=== PATIENT | male | born 1950 | race Caucasian/White ===

== ENCOUNTER 2020-12-18 09:08 | Outpatient (CLI) | payer MEDICARE, OTHER ==
[2020-12-18 09:48] LABS: ALT ALANINE AMINOTRANSFERASE 43 IU/L (10-60); AST ASPARTATE AMINOTRANSFERASE 41 IU/L (10-42); GLUCOSE 107 mg/dL (70-100)
[2020-12-18 10:44] LABS: ESTIMATED AVERAGE GLUCOSE 123 mg/dL (70-100); HEMOGLOBIN A1c% 5.9 % (4.27-6.07)
== END 2020-12-18 09:09 | disposition home or self-care (01) ==
LOC: LAB 09:08
PROVIDERS: ATTEND Nurse Practitioner
DX: E78.1 Pure hyperglyceridemia (principal); R73.01 Impaired fasting glucose; K76.0 Fatty (change of) liver, not elsewhere classified
CPT/HCPCS: 36415; 80061; 81599; 82947; 83036; 83704; 84450; 84460

== ENCOUNTER 2021-07-02 09:09 | Outpatient (CLI) | payer MEDICARE, OTHER ==
[2021-07-02 09:57] LABS: ALT ALANINE AMINOTRANSFERASE 43 IU/L (10-60); AST ASPARTATE AMINOTRANSFERASE 44 IU/L (10-42); CHOL/HDL RATIO 5.1 (<5.0); CHOLESTEROL 179 mg/dL; HDL CHOLESTEROL 35 mg/dL; LDL CHOLESTEROL,CALCULATED 80 mg/dL; LDL/HDL RATIO 2.3 (<3.6); TRIGLYCERIDES 320 mg/dL; VLDL CHOLESTEROL 64 mg/dL
[2021-07-02 10:08] LABS: THYROID STIMULATING HORMONE 7.56 uIU/mL (0.34-5.60)
[2021-07-02 10:58] LABS: FREE T4 (FREE THYROXINE) 0.94 ng/dL (0.58-1.64)
[2021-07-02 11:50] LABS: ESTIMATED AVERAGE GLUCOSE 123 mg/dL (70-100); HEMOGLOBIN A1c% 5.9 % (4.27-6.07)
[2021-07-03 13:30] LABS: GLUCOSE 101 mg/dL (70-100)
== END 2021-07-02 09:10 | disposition home or self-care (01) ==
LOC: LAB 09:09
PROVIDERS: ATTEND Nurse Practitioner
DX: E78.1 Pure hyperglyceridemia (principal); K76.0 Fatty (change of) liver, not elsewhere classified; R73.01 Impaired fasting glucose
CPT/HCPCS: 36415; 80061; 82947; 83036; 83721; 84439; 84443; 84450; 84460

== ENCOUNTER 2021-08-28 09:31 | Outpatient (CLI) | payer MEDICARE, OTHER ==
[2021-08-28 10:12] LABS: ALBUMIN 4.6 g/dL (3.2-5.5); ALBUMIN/GLOBULIN RATIO 1.7 (1.0-2.2); ALKALINE PHOSPHATASE 51 IU/L (42-121); ALT ALANINE AMINOTRANSFERASE 45 IU/L (10-60); AST ASPARTATE AMINOTRANSFERASE 44 IU/L (10-42); BILIRUBIN,TOTAL 0.5 mg/dL (0.2-1.0); BUN - BLOOD UREA NITROGEN 22 mg/dL (6-20); CALCIUM 9.4 mg/dL (8.5-10.3); CARBON DIOXIDE - CO2 23 mmol/L (21-32); CHLORIDE 104 mmol/L (101-111); CHOLESTEROL 151 mg/dL; CREATININE 1.3 mg/dL (0.6-1.2); GFR - MDRD 55 (>89); GLUCOSE 104 mg/dL (70-100); HDL CHOLESTEROL 30 mg/dL; LDL CHOLESTEROL,CALCULATED 70 mg/dL; LDL/HDL RATIO 2.3 (<3.6); POTASSIUM 5.3 mmol/L (3.5-5.0); SODIUM 134 mmol/L (135-145); TOTAL PROTEIN 7.3 g/dL (6.7-8.2); TRIGLYCERIDES 255 mg/dL; VLDL CHOLESTEROL 51 mg/dL
[2021-08-28 12:56] LABS: ESTIMATED AVERAGE GLUCOSE 120 mg/dL (70-100); HEMOGLOBIN A1c% 5.8 % (4.27-6.07)
== END 2021-08-28 09:32 | disposition home or self-care (01) ==
LOC: LAB 09:31
PROVIDERS: ATTEND Nurse Practitioner
DX: E78.1 Pure hyperglyceridemia (principal); R73.01 Impaired fasting glucose; R73.02 Impaired glucose tolerance (oral); E78.5 Hyperlipidemia, unspecified; Z12.5 Encounter for screening for malignant neoplasm of prostate; B19.20 Unspecified viral hepatitis C without hepatic coma
CPT/HCPCS: 36415; 80053; 80061; 83036; 84443; G0103; 82947; 83721; 84153

== ENCOUNTER 2022-03-23 16:23 | Emergency (ER) | payer MEDICARE, OTHER ==
[2022-03-23 17:03] LABS: CREATININE 1.6 mg/dL (0.6-1.2)
[2022-03-23 17:06] LABS: POTASSIUM 6.5 mmol/L (3.5-5.0)
[2022-03-23] MEDS ORDERED: CALCIUM CHLORIDE ABBOJECT 1000MG/10 ML SYRINGE IVP STA (17:10)
[2022-03-23] MEDS ORDERED: DEXTROSE 50% ABBOJECT 25 GM/50 ML SYRINGE IVP STA (17:10)
[2022-03-23] MEDS ORDERED: FUROSEMIDE 40 MG/4 ML VIAL IVP STA (17:11)
[2022-03-23] MEDS ORDERED: INSULIN REGULAR HUMAN 100 UNIT/1 ML 10 ML MDV SUBQ STA (17:13)
[2022-03-23] MEDS ORDERED: SODIUM CHLORIDE 0.9% 1,000 ML IV STA ×2 (17:13→20:26)
--- NOTE | 2022-03-23 17:18 | ED Physician Documentation ---
History of Present Illness - Stated complaint Stated Complaint: high potassium - Chief complaint Chief Complaint: Fever - History obtained from History obtained from: Patient - History of Present Illness Timing: Today - Additonal information Additional information: 71-year-old male with history of hypertension, "memory issues" presents for checking his potassium. Patient states he had routine labs drawn earlier this morning as part of routine care, he was called this afternoon by his primary care physician stating that his potassium was high and he should be reevaluated in the emergency department. Patient does not remember how high his potassium was, he tried to look it up on his online records but could not remember his password to access his chart. Patient states that he otherwise feels in his usual state of health. Review of Systems Ten Systems: 10 systems reviewed and negative Constitutional: denies: Fever, Chills, Myalgias, Fatigue, Weight Loss, Sweats, Reviewed and negative, Other Eyes: denies: Loss of vision, Decreased vision, Photophobia, Discharge, Irritation, Reviewed and negative, Other Ears: denies: Loss of hearing, Ear pain, Drainage/discharge, Tinnitus/ringing, Foreign body, Reviewed and negative, Other Nose: denies: Rhinorrhea / runny nose, Congestion, Epistaxis, Sinus pressure / pain, Foreign Body, Reviewed and negative, Other Throat: denies: Dental pain / toothache, Oral lesions / sores, Sore throat, Swollen tonsils, Swallowed foreign body, Reviewed and negative, Other Cardiac: denies: Chest pain / pressure, Palpitations, Pedal edema, Calf pain, Reviewed and negative, Other Respiratory: denies: Dyspnea, Cough, Hemoptysis, Wheezing, Reviewed and negative, Other GI: denies: Abdominal Pain, Abdominal Swelling, Nausea, Vomiting, Constipation, Diarrhea, Hematemesis, Bloody / black stool, Reviewed and negative, Other : denies: Dysuria, Frequency, Hesitancy, Unable to Void, Incontinent, Hematuria, Discharge, LMP, Vaginal bleeding, Irregular menses, Missed period, Now EGA, Control, Hysterectomy, Testicular pain, Testicular mass, [place] Problem, Reviewed and negative, Other Skin: denies: Rash, Lesions, Abrasion (s), Laceration (s), Bite / sting, Reviewed and negative, Other Musculoskeletal: denies: Neck pain, Back pain, Extremity pain, Joint pain, Extremity swelling, Joint swelling, Pain with weight bearing, Reviewed and negative, Other Neurologic: denies: Generalized weakness, Focal weakness, Numbness, Difficulty speaking, Near syncope, Syncope, Seizure, Confused, Altered mental status, Unresponsive, Headache, Head injury, LOC, Reviewed and negative, Other Psychiatric: denies: Depressed, Suicidal, Homicidal, Hallucinations, Delusions, Anxiety, Insomnia, Reviewed and negative, Other Endocrine: denies: Polydypsia, Polyuria, Polyphagia, Weight loss, Weight gain, Easy bruising / bleeding, Swollen lymph nodes, Reviewed and negative, Other PD PAST MEDICAL HISTORY - Past Medical History Past Medical History: Yes Cardiovascular: Hypertension - Allergies Allergies/Adverse Reactions: Allergies Allergy/AdvReac Type Severity Reaction Status Date / Time No Known Drug Allergies Allergy Verified 03/23/22 16:35 PD ED PE NORMAL - Vitals Vital signs reviewed: Yes - General General: Alert and oriented X 3, No acute distress, Well developed/nourished, Other - HEENT HEENT: Atraumatic, PERRL, EOMI, Ears normal, Moist mucous membranes, Pharynx benign, Dentition benign, Other - Neck Neck: Supple, no meningeal sign, No bony TTP, No adenopathy, Thyroid normal, No JVD, No bruit, C-Spine cleared by NEXUS criteria, Other - Cardiac Cardiac: RRR, No murmur, No gallop, No rub, Strong equal pulses, Other - Respiratory Respiratory: No respiratory distress, Clear bilaterally, Other - Abdomen Abdomen: Normal bowel sounds, Soft, Non tender, Non distended, No organomegaly, Other - Back Back: No CVA TTP, No spinal TTP, Other - Derm Derm: Normal color, Warm and dry, No rash, Other - Extremities Extremities: No deformity, No tenderness to palpate, Normal ROM s pain, No edema, No calf tenderness / cord, Other - Neuro Neuro: Alert and oriented X 3, supervisor line department 2-12 intact, No motor deficit, No sensory deficit, Normal speech, Other - Psych Psych: Normal mood, Normal affect, Other Results - Vitals Vitals: Vital Signs - 24 hr 03/23/22 16:30 Temperature 36.1 C L Heart Rate 52 L Respiratory 16 Rate Blood Pressure 144/99 H O2 Saturation 99 Oxygen O2 Source Room air - EKG (time done) 1641 Rate: Rate (enter#) (71) Rhythm: NSR [place]: Normal Ischemia: No: Hyperacute T waves - Labs Labs: Laboratory Tests 03/23/22 16:42 Sodium 138 Potassium 6.5 H* Chloride 103 Carbon Dioxide 27 Anion Gap 8.0 BUN 37 H Creatinine 1.6 H Estimated GFR (MDRD) 43 L Glucose 113 H Calcium 10.0 PD MEDICAL DECISION MAKING - ED course Complexity details: reviewed old records ED course: Well-appearing male presenting for hyperkalemia. Repeat potassium our facility 6.5. Patient has creatinine 1.6. Patient is on lisinopril for his blood pressure, likely has [place] secondary to this. No significant EKG changes, will treat aggressively with calcium, insulin, D50, Lasix. There are no hospital beds available, will treat in the emergency department. Informed Dr. Carter of patient's case. Repeat lab work to be drawn later this afternoon and followed by him. Patient HD stable at time of signout
[2022-03-23 18:13] LABS: MAGNESIUM 2.3 mg/dL (1.7-2.8); PHOSPHORUS 4.6 mg/dL (2.5-4.6)
[2022-03-23 19:59] LABS: CALCIUM 11.1 mg/dL (8.5-10.3); CREATININE 1.5 mg/dL (0.6-1.2); POTASSIUM 5.9 mmol/L (3.5-5.0)
--- NOTE | 2022-03-23 21:56 | ED Physician Documentation ---
ED Addendum - Addendum Addendum: 03/23/22 21:55 Patient was signed out to me by Dr. Shafer, repeat potassium is gone from 6.3 down to 5.9. He is continuing to receive IV fluids. He will be signed out to the oncoming emergency department physician for repeat potassium, if it continues to downtrend, can likely be discharged. The hyperkalemia may be secondary to lisinopril, would recommend stopping this. Departure - Departure Clinical Impression: Hyperkalemia
[2022-03-23 23:26] VITALS: BP 146/69
--- NOTE | 2022-03-23 23:27 | ED Physician Documentation ---
ED Addendum - Addendum Addendum: Patient signed out to me by Dr. Carter for recheck of potassium With plan for discharge when potassium is below 5.5. Most recent lab with potassium of 5.4 which is significantly improved from previous. Patient has remained asymptomatic in the emergency department. He is already planning on calling his primary care doctor in the morning as they wanted him to call for a video follow-up. He is advised to hold his lisinopril as this could be contributing to his hyperkalemia. He is advised on return precautions. Departure - Departure Disposition: 01 Home, Self Care Clinical Impression: Hyperkalemia Condition: Stable Instructions: Hyperkalemia Dc Follow-Up: Hima Kovacs MD [Primary Care Provider] - Comments: You were evaluated and treated for a high potassium level. Your most recent Lab has lowered your potassium to 5.4. Potassium could be elevated due to one of your medications called lisinopril which is used to treat high blood pressure. Please hold the lisinopril for now and call your primary care doctor tomorrow to discuss your current medications as well as to arrange for close follow-up. If you have any symptoms such as weakness, vomiting, chest pain or any concerns return to the emergency department. Discharge Date/Time: 03/23/22 23:34
== END 2022-03-23 23:34 | disposition home or self-care (01) ==
LOC: ED 16:23
DX: E87.5 Hyperkalemia (principal)
CPT/HCPCS: 36415; 80048; 83735; 84100; 84132; 93005; 96361; 96374; 96375; 99283; 99284; J1815

== ENCOUNTER 2022-03-25 10:38 | Outpatient (CLI) | payer MEDICARE, OTHER ==
[2022-03-25 11:06] LABS: CALCIUM 9.9 mg/dL (8.5-10.3); CREATININE 1.6 mg/dL (0.6-1.2); POTASSIUM 5.5 mmol/L (3.5-5.0)
[2022-03-25 11:26] LABS: THYROID STIMULATING HORMONE 2.84 uIU/mL (0.34-5.60)
[2022-03-25 14:18] LABS: ESTIMATED AVERAGE GLUCOSE 120 mg/dL (70-100); HEMOGLOBIN A1c% 5.8 % (4.27-6.07)
== END 2022-03-25 10:39 | disposition home or self-care (01) ==
LOC: LAB 10:38
PROVIDERS: ATTEND Nurse Practitioner
DX: E78.1 Pure hyperglyceridemia (principal); R73.01 Impaired fasting glucose; R73.02 Impaired glucose tolerance (oral); E87.5 Hyperkalemia
CPT/HCPCS: 36415; 80048; 82947; 83036; 84443

== ENCOUNTER 2022-08-19 09:58 | Outpatient (CLI) | payer MEDICARE, OTHER ==
[2022-08-19 10:18] LABS: HCT - HEMATOCRIT 38.1 % (42.0-52.0); HGB - HEMOGLOBIN 12.1 g/dL (14.0-18.0); MEAN CORPUSCULAR HEMOGLOBIN 28.3 pg (27.0-31.0); MEAN CORPUSCULAR HGB CONC 31.8 g/dL (32.0-36.0); MEAN CORPUSCULAR VOLUME 89.2 fL (80.0-94.0); MEAN PLATELET VOLUME 9.5 fL (7.4-11.4); RED BLOOD COUNT 4.27 10^6/uL (4.70-6.10); RED CELL DISTRIBUTION WIDTH 13.2 % (12.0-15.0); WHITE BLOOD COUNT 9.5 x10^3/uL (4.8-10.8)
[2022-08-19 10:41] LABS: ALBUMIN 4.7 g/dL (3.2-5.5); BILIRUBIN,TOTAL 0.6 mg/dL (0.2-1.0); CALCIUM 9.9 mg/dL (8.5-10.3); CREATININE 1.2 mg/dL (0.6-1.2); POTASSIUM 4.6 mmol/L (3.5-5.0); TOTAL PROTEIN 7.1 g/dL (6.7-8.2)
[2022-08-19 10:48] LABS: THYROID STIMULATING HORMONE 0.95 uIU/mL (0.34-5.60)
== END 2022-08-19 09:59 | disposition home or self-care (01) ==
LOC: LAB 09:58
PROVIDERS: ATTEND Internal Medicine
DX: R53.83 Other fatigue (principal)
CPT/HCPCS: 36415; 80053; 83540; 84443; 84466; 85027

== ENCOUNTER 2023-03-22 13:58 | Outpatient (CLI) | payer MEDICARE, OTHER ==
[2023-03-22 14:35] LABS: CALCIUM 9.7 mg/dL (8.5-10.3); CREATININE 1.7 mg/dL (0.6-1.2); POTASSIUM 5.2 mmol/L (3.5-5.0)
== END 2023-03-22 13:59 | disposition home or self-care (01) ==
LOC: LAB 13:58
PROVIDERS: ATTEND Internal Medicine
DX: M54.42 Lumbago with sciatica, left side (principal); M54.41 Lumbago with sciatica, right side; G89.29 Other chronic pain
CPT/HCPCS: 36415; 80048

== ENCOUNTER 2023-03-27 17:15 | Observation (INO) | payer MEDICARE, OTHER ==
[2023-03-27] MEDS ORDERED: SODIUM CHLORIDE 0.9% 1,000 ML IV STA ×2 (17:33→18:58)
[2023-03-27 17:42] LABS: BASOPHILS # (AUTO) 0.1 10^3/uL (0.0-0.1); BASOPHILS % (AUTO) 0.4 %; EOSINOPHILS # (AUTO) 0.3 10^3/uL (0.0-0.7); HCT - HEMATOCRIT 35.3 % (42.0-52.0); HGB - HEMOGLOBIN 11.5 g/dL (14.0-18.0); LYMPHOCYTES # (AUTO) 2.4 10^3/uL (1.5-3.5); LYMPHOCYTES % (AUTO) 21.8 %; MEAN CORPUSCULAR HGB CONC 32.6 g/dL (32.0-36.0); MEAN CORPUSCULAR VOLUME 89.1 fL (80.0-94.0); MEAN PLATELET VOLUME 9.1 fL (7.4-11.4); MONOCYTES # (AUTO) 1.2 10^3/uL (0.0-1.0); MONOCYTES % (AUTO) 10.3 %; NEUTROPHILS # (AUTO) 7.2 10^3/uL (1.5-6.6); NEUTROPHILS % (AUTO) 63.9 %; PLT - PLATELET COUNT 204 10^3/uL (130-450); RED BLOOD COUNT 3.96 10^6/uL (4.70-6.10); RED CELL DISTRIBUTION WIDTH 12.8 % (12.0-15.0); WHITE BLOOD COUNT 11.2 x10^3/uL (4.8-10.8)
--- NOTE | 2023-03-27 18:01 | ED Physician Documentation ---
History of Present Illness - Stated complaint Stated Complaint: CHEST SPASMS - Chief complaint Chief Complaint: General - History obtained from History obtained from: Patient - History of Present Illness Timing: Yesterday Pain level max: 5 Pain level now: 0 - Additonal information Additional information: Patient is a 72-year-old male who presents to the emergency department complaining of whole body spasms. He states that this started yesterday after hiking. He states similar symptoms previously with elevated potassium levels in his blood. Currently is asymptomatic. He states he had spasms on the chest wall today that he could visibly see, his told him he could be having a heart attack and told him to come to the emergency department. No nausea. No vomiting. No shortness of breath. No swelling. No cardiac history. He states feels similar to last time his potassium was high. Review of Systems Constitutional: denies: Fever, Chills GI: denies: Vomiting, Diarrhea Skin: denies: Rash Musculoskeletal: denies: Neck pain, Back pain Neurologic: denies: Headache PD PAST MEDICAL HISTORY - Past Medical History Cardiovascular: Hypertension - Past Surgical History Past Surgical History: No - Present Medications Home Medications: Ambulatory Orders Medication Instructions Recorded Confirmed Levothyroxine [Synthroid] 125 mcg PO QDAC 03/27/23 03/27/23 Lisinopril [Zestril] 10 mg PO DAILY 03/27/23 03/27/23 Rosuvastatin Calcium [Crestor] 5 mg PO DAILY 03/27/23 03/27/23 buprenorphine HCL [Buprenorphine 8 mg PO DAILY 03/27/23 03/27/23 HCl] - Allergies Allergies/Adverse Reactions: Allergies Allergy/AdvReac Type Severity Reaction Status Date / Time No Known Drug Allergies Allergy Verified 03/27/23 17:25 - Social History Does the pt smoke?: No Smoking Status: Never smoker Does the pt drink ETOH?: No Does the pt have substance abuse?: No - Immunizations Immunizations are current?: Yes - POLST Patient has POLST: No PD ED PE NORMAL - Vitals Vital signs reviewed: Yes - General General: Alert and oriented X 3, No acute distress - HEENT HEENT: Moist mucous membranes - Neck Neck: Supple, no meningeal sign - Cardiac Cardiac: RRR, Strong equal pulses - Respiratory Respiratory: No respiratory distress, Clear bilaterally - Abdomen Abdomen: Soft, Non tender, Non distended - Derm Derm: Warm and dry - Extremities Extremities: No edema, No calf tenderness / cord - Neuro Neuro: Alert and oriented X 3 - Psych Psych: Normal mood, Normal affect Results - Vitals Vitals: Vital Signs - 24 hr 03/27/23 17:17 Temperature 36.5 C Heart Rate 53 L Respiratory 15 Rate Blood Pressure 148/80 H O2 Saturation 100 Oxygen O2 Source Room air - EKG (time done) 1811 EKG releavant findings:: EKG personally interpreted by author of this note. Relevant findings are: Rate: Rate (enter#) (49) Rhythm: Sinus bradycardia [place]: LAD Intervals: Normal [place] QRS: Normal Ischemia: Normal ST segments - Labs Labs: Laboratory Tests 03/27/23 03/27/23 03/27/23 17:38 17:38 17:38 WBC 11.2 H RBC 3.96 L Hgb 11.5 L Hct 35.3 L MCV 89.1 MCH 29.0 MCHC 32.6 RDW 12.8 Plt Count 204 MPV 9.1 Neut # (Auto) 7.2 H Lymph # (Auto) 2.4 [place] # (Auto) 1.2 H Eos # (Auto) 0.3 Baso # (Auto) 0.1 Absolute Nucleated RBC 0.00 Nucleated RBC % 0.0 Sodium 130 L Potassium 5.3 H Chloride 99 L Carbon Dioxide 25 Anion Gap 6.0 BUN 42 H Creatinine 1.6 H Estimated GFR (MDRD) 43 L Glucose 105 H Calcium 9.5 Phosphorus 4.4 Magnesium 2.0 Total Bilirubin 0.4 AST 85 H ALT 55 Alkaline Phosphatase 51 Total Creatine Kinase 3317 H* Troponin I High Sens 14.1 Total Protein 7.3 Albumin 4.6 Globulin 2.7 Albumin/Globulin Ratio 1.7 PD Medical Decision Making - ED course Complexity details: reviewed results, re-evaluated patient, considered differential, d/w patient ED course: 72-year-old male with hyperkalemia, chronic renal failure and rhabdomyolysis. He was given insulin, glucose and IV fluids. Given the combination of hyperkalemia, renal failure and rhabdomyolysis, we will place in observation for continued hydration and to recheck labs overnight in the morning to ensure that he is improving as expected. No EKG changes. Not currently having spasms in the emergency department. Discussed the case with the hospitalist who accepts This document was made in part using voice recognition software. While efforts are made to proofread this document, sound alike and grammatical errors may occur. Departure - Departure Disposition: ED Place in Observation Clinical Impression: Hyperkalemia Rhabdomyolysis Qualifiers: Rhabdomyolysis type: non-traumatic Qualified Code(s): M62.82 - Rhabdomyolysis Condition: Stable Forms: PCP List
[2023-03-27 18:03] LABS: ALBUMIN 4.6 g/dL (3.2-5.5); ALBUMIN/GLOBULIN RATIO 1.7 (1.0-2.2); BILIRUBIN,TOTAL 0.4 mg/dL (0.2-1.0); CALCIUM 9.5 mg/dL (8.5-10.3); CREATININE 1.6 mg/dL (0.6-1.3); PHOSPHORUS 4.4 mg/dL (3.7-7.2); POTASSIUM 5.3 mmol/L (3.5-4.5); TOTAL PROTEIN 7.3 g/dL (6.4-8.9)
--- NOTE | 2023-03-27 18:50 | XRAY Report ---
PROCEDURE: Chest 1 View X-Ray INDICATIONS: chest pain TECHNIQUE: One view of the chest was acquired. COMPARISON: None. FINDINGS: Surgical changes and devices: None. Lungs and pleura: No pleural effusions or pneumothorax. Lungs are clear. Mediastinum: Mediastinal contours appear normal. Heart size is normal. Bones and chest wall: No suspicious bony lesions. Overlying soft tissues appear unremarkable. IMPRESSION: No acute cardiopulmonary process. Reviewed by: Rios Grover MD on 03/27/2023 5:48 PM [facility]GLADYS Approved by: Rios Grover MD on 03/27/2023 5:48 PM AKDT Station ID: [id number]
[2023-03-27] MEDS ORDERED: DEXTROSE 50% ABBOJECT 25 GM/50 ML SYRINGE IVP STA (18:58)
[2023-03-27] MEDS ORDERED: INSULIN NPH HUMAN 100 UNIT/1 ML 10 ML MDV SUBQ STA (18:58)
[2023-03-27] MEDS ORDERED: INSULIN REGULAR HUMAN 300 UNIT/3 ML VIAL SUBQ STA (19:10)
--- NOTE | 2023-03-27 19:56 | HISTORY & PHYSICAL EXAMINATION ---
Chief Complaint - Chief Complaint Chief Complaint: Chest Spasm and body ache History of Present Illness - Admitted From Admitted From:: Home - History Obtained From Records Reviewed: Yes History obtained from: Patient and ER MD Exam Limitations: None - History of Present Illness HPI Comment/Other: Patient is a 72-year-old male who presents to the emergency department complaining of whole body spasms. He states that this started yesterday after hiking. He states similar symptoms previously with elevated potassium levels in his blood. Currently is asymptomatic. He states he had spasms on the chest wall today that he could visibly see, his told him he could be having a heart attack and told him to come to the emergency department. No nausea. No vomiting. No shortness of breath. No swelling. No cardiac history. He states feels similar to last time his potassium was high. Patient seen and examined via telemed. 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 with no hx of tobacco use, illicity drug use, socially drinks alcohol not very common, comes in with body aches and muscle spasm worse yesterday after he went for a 5 mile hike, was in good amount of pain last night usually taking Diclofenac on a chronic basis for pain, has hx of right hip and right knee surgery, L4-5 decompression surgery, hx of sciatica, chronic back pain, also has dyslipidemia, hx of hyperkalemia, sinusitis and runny nose, htn, ckd, patient in ER found to have creatinine of 1.6 with elevated ck and hyperkalemia will be admitted for early mild rhabdomyolysis, hyperkalemia, muscle aches and pain for observation overnight. If he is doing well and numbers improved can likely be dc with in 24 hours "We discussed following 1. Check vit D screen and consider conezyme Q10 for muscle spasm while on low dose of crestor 2. establish care with nephrology secondary to CKD 3. Meet with [employer] [facility] to consider Low K intake as outpatient 4. Avoid NSAIDS for back pain and consider tylenol or other Non steroidals for pain control, consider PT which may help with back pain 5. discuss with pcp regarding lisiopril which can make you K go up 6. Keep him self well hydrated, He requested me to put all of the above on his dc paperwork as he feels his memory lately is not as good as in his younger days, would also recommend cognitive evaulation for baseline with his pcp" I also have explained to patient for ute, will give him nasal spray, ivf, morphine sulfate x one dose and repeat labs in am We had a nice videovisit and all his question answered also he is aware that I am admitting him from remote location in [place] and he will be seen by my colleagues from the inpatient team face to face in am, also we discussed advance directives and he is full code. He also states he will need his left knee replaced soon. History - Past Medical History Cardiovascular: reports: Hypertension Endocrine/Autoimmune: reports: HyPOthyroidism MRSA Hx?: Yes Other Past Medical History: Hx of right knee and Hip replacement. Hx of Back surgery. Hx of nasal allergies and sinus issues. Hx of CKD. Hx of HTN - POLST Patient has POLST: No Meds/Allgy - Home Medications Home Medications: Ambulatory Orders Medication Instructions Recorded Confirmed Levothyroxine [Synthroid] 125 mcg PO QDAC 03/27/23 03/27/23 Lisinopril [Zestril] 10 mg PO DAILY 03/27/23 03/27/23 Rosuvastatin Calcium [Crestor] 5 mg PO DAILY 03/27/23 03/27/23 buprenorphine HCL [Buprenorphine 8 mg PO DAILY 03/27/23 03/27/23 HCl] - Allergies Allergies/Adverse Reactions: Allergies Allergy/AdvReac Type Severity Reaction Status Date / Time No Known Drug Allergies Allergy Verified 03/27/23 17:25 Review of Systems - Constitutional Constitutional: reports: Weakness - Cardiovascular Cariovascular: reports: Chest pain - Musculoskeletal Musculoskeletal: reports: Muscle pain, Back pain, Muscle aches, Stiffness - Psychiatric Psychiatric: reports: Anxiety Prior Level of Functionality: Patient is independent with his ADL's Exam - Vital Signs Vital Signs: Vital Signs x48h Temp Pulse Resp BP Pulse Ox 03/27/23 17:17 36.5 C 53 L 15 148/80 H 100 - Physical Exam General Appearance: positive: No acute distress, Alert Eyes Bilateral: positive: Normal inspection, PERRL ENT: positive: Pharynx nml Neck: positive: Nml inspection, Thyroid nml, No JVD Respiratory: positive: No respiratory distress, Breath sounds nml Cardiovascular: positive: Regular rate & rhythm Abdomen: positive: Non-tender, Nml bowel sounds Skin: positive: Color nml, No rash, Warm Extremities: positive: Non-tender, Full ROM, Nml appearance Neurologic/Psychiatric: positive: Oriented x3, CN's nml (2-12), Motor nml, Sensation nml Sepsis Event Note (H) - Evaluation Current Stage of Sepsis: Ruled out Conclusion/Plan - Problem List (1) Back pain Conclusion/Plan: Morphine sulfate 2 mg ivp x one dose (2) HTN (hypertension) Conclusion/Plan: Hold lisinopril for tongiht hjydralazine prn (4) Hyperkalemia Conclusion/Plan: Kayexalate 30 gm po x one dose Nutrition education (5) Rhabdomyolysis Conclusion/Plan: Gentle hydration Check Vitamin D screen Qualifiers: Rhabdomyolysis type: non-traumatic Qualified Code(s): M62.82 - Rhabdomyolysis - Lab Results Fish Bones: 03/27/23 17:38 03/27/23 17:38 - EKG Results EKG Interpreted Independently: No
[2023-03-27] MEDS ORDERED: oxyCODONE 5 MG TABLET PO PRN (20:01)
[2023-03-27] MEDS ORDERED: ONDANSETRON 4 MG/2 ML VIAL IVP PRN (20:01)
[2023-03-27] MEDS ORDERED: SODIUM CHLORIDE FLUSH 0.9% 10 ML SYRINGE IVP PRN (20:01)
[2023-03-27] MEDS ORDERED: ACETAMINOPHEN 325 MG TABLET PO PRN (20:01)
[2023-03-27] MEDS ORDERED: SODIUM CHLORIDE 0.65% NASAL SPRAY NAS STA (20:04)
[2023-03-27] MEDS ORDERED: hydrALAZINE INJ 20 MG/ML VIAL IVP PRN (20:06)
[2023-03-27] MEDS ORDERED: MORPHINE 2 MG/ML CARPUJECT IVP SCH (21:00)
[2023-03-27] MEDS: SODIUM CHLORIDE 0.9% 1,000 ML IV SCH (21:35)
[2023-03-28] MEDS: SODIUM CHLORIDE FLUSH 0.9% 10 ML SYRINGE IVP SCH ×2 (00:14→09:42)
[2023-03-28] MEDS ORDERED: OXYMETAZOLINE HCL 100 SPRAYS BOTTLE NAS PRN (02:39)
[2023-03-28 05:20] LABS: BASOPHILS # (AUTO) 0.1 10^3/uL (0.0-0.1); BASOPHILS % (AUTO) 0.7 %; EOSINOPHILS # (AUTO) 0.4 10^3/uL (0.0-0.7); EOSINOPHILS % (AUTO) 4.1 %; HCT - HEMATOCRIT 36.2 % (42.0-52.0); LYMPHOCYTES # (AUTO) 2.5 10^3/uL (1.5-3.5); LYMPHOCYTES % (AUTO) 24.3 %; MEAN CORPUSCULAR HEMOGLOBIN 29.6 pg (27.0-31.0); MEAN CORPUSCULAR HGB CONC 33.1 g/dL (32.0-36.0); MEAN CORPUSCULAR VOLUME 89.2 fL (80.0-94.0); MEAN PLATELET VOLUME 9.7 fL (7.4-11.4); MONOCYTES % (AUTO) 9.7 %; NEUTROPHILS # (AUTO) 6.3 10^3/uL (1.5-6.6); NEUTROPHILS % (AUTO) 60.4 %; PLT - PLATELET COUNT 218 10^3/uL (130-450); RED BLOOD COUNT 4.06 10^6/uL (4.70-6.10); RED CELL DISTRIBUTION WIDTH 13.1 % (12.0-15.0); WHITE BLOOD COUNT 10.4 x10^3/uL (4.8-10.8)
[2023-03-28 05:33] LABS: CHOL/HDL RATIO 3.5 (<5.0); CHOLESTEROL 163 mg/dL; HDL CHOLESTEROL 46 mg/dL; LDL CHOLESTEROL,CALCULATED 77 mg/dL; LDL/HDL RATIO 1.7 (<3.6); TRIGLYCERIDES 202 mg/dL (48-352); VLDL CHOLESTEROL 40 mg/dL
[2023-03-28] MEDS: SODIUM CHLORIDE 0.9% 1,000 ML IV SCH (06:53)
[2023-03-28] MEDS ORDERED: BUPRENORPHINE/NALOXONE 8-2 MG TAB SL SCH (09:00)
[2023-03-28 10:05] LABS: ALBUMIN 4.6 g/dL (3.2-5.5); ALBUMIN/GLOBULIN RATIO 1.8 (1.0-2.2); BILIRUBIN,TOTAL 0.5 mg/dL (0.2-1.0); CALCIUM 9.5 mg/dL (8.5-10.3); CREATININE 1.3 mg/dL (0.6-1.3); TOTAL PROTEIN 7.2 g/dL (6.4-8.9)
--- NOTE | 2023-03-28 10:22 | PHARMACY PROGRESS NOTE ---
- Best Possible Medication History Admit Date and Time: 03/27/232001 Processed by: Pharmacy Medication History completed: Yes Patient Interview: Completed Secondary Source(s): Pharmacy records As the person ultimately responsible for medication therapy, providers are able to order a medication from an existing home medication list in [facility] via the "Reconcile Routine" prior to Confirmation of that medication by field support representative. Such practice is discouraged except when the physician, in their clinical judgment, deems that a medical need exists for a medication without regard to previous use.
[2023-03-28] MEDS ORDERED: SODIUM CHLORIDE 0.9% 500 ML IV ONE (10:53)
[2023-03-28] MEDS ORDERED: SODIUM ZIRCONIUM CYCLOSILICATE 5 GM PACKET PO ONE (11:03)
--- NOTE | 2023-03-28 11:04 | Discharge Plan ---
Discharge Plan Problem Reviewed?: Yes Disposition: Home, Self Care Condition: Stable Prescriptions: amLODIPine [Norvasc] 5 mg PO DAILY #30 tablet Levothyroxine Sodium [Synthroid] 137 mcg PO QDAC #30 tablet Diet: Regular (Low potassium diet recommended. Avoid foods like bananas, oranges for the next couple of days) Activity Restrictions: No hiking for 5 days Shower Restrictions: No Driving Restrictions: No Instruction Topics: Rhabdomyolysis, Diet Low Potassium Dc, Kidney Disease Chronic Dc Health Concerns: You were hospitalized to treat a high potassium level, and you could feel your muscle twitches because of this high potassium. It was caused by you having worsening of your chronic kidney disease brought on by muscle breakdown (called rhabdomyolysis), from overexertion. Probably the recent 5 mile hike was too much for your body. In addition we found you to be dehydrated, which can also stress the kidneys. Your history of blood test shows you have chronic kidney disease. You really should avoid medicines that can harm your kidneys. The diclofenac should be used very rarely, like once a week max. You received medicines to decrease your serum potassium level. One of the medicines you take makes your body retain potassium and it should not be used any longer: the Lisinopril for blood pressure. You are being discharged home with a prescription for a different medicine for blood pressure control called Amlodipine. The new prescription was electronically sent to your [facility] pharmacy in [place]. Amlodipine does not affect the kidney function and does not make you retain potassium. Today your blood pressure is normal even without a BP med, because you are still dehydrated. I recommend you start taking the Amlodipine in 2-3 days. It appears you overdid it on that recent 5 mile hike. You had muscle breakdown from over-use that could be measured by blood tests. You are being discharged home and advised to rest and only do light activity for the next 5 days (taking short strolls on a flat surface, and going shopping are okay). Also you should flush your blood of that muscle breakdown protein, by taking in more fluids than you normally do, for the next 2 to 3 days. Avoid fluids that contain potassium. When you do start hiking again, you need to stay better hydrated. The admitting telemedicine doctor also checked your vitamin D level, because low vitamin D can cause muscle aches. That vitamin D result is not back yet. Lastly, we found that your Synthroid dose is too low. You are being prescribed the next dose up, which is 137 mcg daily. This may help with the fatigue that you describe. This prescription was also electronically sent to your [facility] pharmacy in [place]. In several weeks or months, your blood thyroid level should be checked again by your primary care provider. Plan of Treatment: As above. Care Goals: Improvement in symptoms and stabilization are the goals. Assessment: The patient understands and is agreeable with the plan. Additional Instructions or Follow Up instructions: Please see your primary care provider in the next 1 to 2 weeks for a hospital follow-up visit. Please discuss these medication changes. You may need repeat blood tests. No Smoking: If you smoke, Please STOP! Call for help. Follow-up with: Hima Kovacs MD [Primary Care Provider] -
[2023-03-28 11:50] VITALS: O2SAT 100
--- NOTE | 2023-03-28 14:02 | DISCHARGE SUMMARY ---
Discharge Summary Admit Date: 03/27/23 Discharge Date: 03/28/23 Discharging Provider: Dr Mel Archuleta Primary Care Provider: Dr Hima Kovacs Code Status: Attempt Resuscitation Condition at Discharge: Stable Discharge Disposition: 01 Home, Self Care - HPI History of Present Illness: Patient is a 72-year-old male who presents to the emergency department complaining of whole body spasms. He states that this started yesterday after hiking. He states similar symptoms previously with elevated potassium levels in his blood. Currently is asymptomatic. He states he had spasms on the chest wall today that he could visibly see, his told him he could be having a heart attack and told him to come to the emergency department. No nausea. No vomiting. No shortness of breath. No swelling. No cardiac history. He states feels similar to last time (last summer) when his potassium was high and he was severely dehydrated. Patient seen and examined via telemed. 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 with no hx of tobacco use, illicity drug use, socially drinks alcohol not very common, comes in with body aches and muscle spasm worse yesterday after he went for a 5 mile hike, was in good amount of pain last night usually taking Diclofenac on a chronic basis for pain, has hx of right hip and right knee surgery, L4-5 decompression surgery, hx of sciatica, chronic back pain, also has dyslipidemia, hx of hyperkalemia, sinusitis and runny nose, htn, ckd, patient in ER found to have creatinine of 1.6 with elevated ck and hyperkalemia will be admitted for early mild rhabdomyolysis, hyperkalemia, muscle aches and pain for observation overnight. If he is doing well and numbers improved can likely be dc within 24 hours. He requested we put all discharge instructions on paperwork as he feels his memory lately is not as good as in his younger days. We discussed advance directives and he is full code. - HOSPITAL COURSE Hospital Course: 1) Hyperkalemia His admission K was 5.3. He was given Insulin and D50 in the ER. He was started on Normal Saline iv. The next serum K was 5.0. He got a saline bolus as well and a dose of Lokelma. At discharge his K was 4.7. 2) Rhabdomyolysis His admission CK was 3317. It was felt that he overdid it with his 5 mile hike. He was started on Normal Saline at 100 cc an hour. His muscle aches decreased. The next CK was 2954, then 1916 at time of discharge. We also sent off a vit D screen which was not back at the time of discharge, and please consider conezyme Q10 for muscle spasm/pain or a lower dose of Crestor. He was instructed to drink more fluids for the next 2 to 3 days, and advised no hiking for 5 days. 3) Acute on CKD The patient runs creatinine levels of 1.3-1.7 (per review of EMR). He came in with a creatinine of 1.6. This was likely caused by dehydration and rhabdomyolysis and from being on an ROCAEL inhibitor. He was started on IV fluids. Lisonopril was on hold, since he ran a normal blood pressure while here. On the day after admission his creatinine had improved to 1.3. Please consider a referral to Nephrology given his CKD. 4) Dehydration This was felt to be adding to his [place]. He was put on NS at 100 cc/hour. He a lso got a saline bolus. He was advised to continue to drink more fluids in the next 2 to 3 days after discharge. 5) Hypothyroidism We checked his TSH which was elevated at 18.68, therefore his T4 was checked which was low at 0.71. The patient had his Synthroid dose increased from 125 mcg daily to 137 mcg daily to start after discharge. 6) Hx of HTN Because of his CKD and recurrence of hyperkalemia, Llisinopril ws not advised to be used for controlling his HTN. This was discussed with the patient. Shelly nopril was stopped. He was put on Amlodipine 5 mg daily, to be started in about 2 days after discharge, since here without any BP meds, his blood pressure was running 120-139/65-75, consistent with being dehydrated 7) Bradycardia On telemetry, his heart rate was 42-50 at rest. This is very likely from his athletic nature. 8) Poor memory He brought this up in review of systems and several other times. All his instructions were written out as reminders. PCP to please consider evaluation of his worsening memory. - ALLERGIES Allergies/Adverse Reactions: Allergies Allergy/AdvReac Type Severity Reaction Status Date / Time No Known Drug Allergies Allergy Verified 07/22/23 17:25 - MEDICATIONS Home Medications: Ambulatory Orders Medication Instructions Recorded Confirmed Rosuvastatin Calcium [Crestor] 5 mg PO DAILY 03/27/23 03/27/23 buprenorphine HCL [Buprenorphine 8 mg PO DAILY 03/27/23 03/27/23 HCl] Levothyroxine Sodium [Synthroid] 137 mcg PO QDAC #30 tablet 03/28/23 Multivitamin W/Minerals [Theragran 1 tab PO DAILY 03/28/23 03/28/23 M] Oxymetazoline HCl [Afrin] 2 sprays TERESA BID PRN each 03/28/23 amLODIPine [Norvasc] 5 mg PO DAILY #30 tablet 03/28/23 - PHYSICAL EXAM AT DISCHARGE General Appearance: positive: No acute distress, Alert Eyes Bilateral: positive: Normal inspection, EOMI ENT: positive: ENT inspection nml, No signs of dehydration Neck: positive: Nml inspection, No JVD Respiratory: positive: No respiratory distress, Breath sounds nml Cardiovascular: positive: Regular rate & rhythm, No murmur Abdomen: positive: Non-tender, Nml bowel sounds, No distention Skin: positive: Warm, Dry Extremities: positive: Non-tender, No pedal edema Neurologic/Psychiatric: positive: Oriented x3, Motor nml - LABS Result Diagrams: 03/28/23 04:46 03/28/23 15:22 - DIAGNOSTIC IMAGING Diagnostic Imaging Results: Final report reviewed - SEPSIS Current Stage of Sepsis: Ruled out - FOLLOW UP Follow Up: See PCP in next 1 to 2 weeks. - TIME SPENT Time Spent in Discharge (Minutes): 30
[2023-03-28 15:41] LABS: POTASSIUM 4.7 mmol/L (3.5-4.5)
[2023-03-28 15:55] VITALS: BP 134/75
[2023-03-29] MEDS ORDERED: LEVOTHYROXINE 125 MCG TABLET PO SCH (07:00)
== END 2023-03-28 16:30 | disposition home or self-care (01) ==
LOC: ED 17:15 → MS2 20:02
PROVIDERS: ADMIT Internal Medicine; ATTEND Internal Medicine
DX: E87.5 Hyperkalemia (principal); I12.9 Hypertensive chronic kidney disease with stage 1 through stage 4 chronic kidney disease, or unspecified chronic kidney disease; N18.9 Chronic kidney disease, unspecified; M62.82 Rhabdomyolysis; E86.0 Dehydration; E03.9 Hypothyroidism, unspecified; R00.1 Bradycardia, unspecified; R41.3 Other amnesia
CPT/HCPCS: 36415; 71045; 80053; 80061; 82306; 82550; 83735; 84100; 84132; 84439; 84443; 84484; 85025; 93005; 96361; 96374; 96375; 99285; A9270; G0378; J1815; 83721

== ENCOUNTER 2024-05-22 11:40 | Outpatient (CLI) | payer MEDICARE, OTHER ==
[2024-05-22 12:04] LABS: CK- CREATINE KINASE 693 IU/L (30-223); CRP - C-REACTIVE PROTEIN < 0.5 mg/dL (<0.5)
== END 2024-05-22 11:41 | disposition home or self-care (01) ==
LOC: LAB 11:40
PROVIDERS: ATTEND Internal Medicine
DX: M62.89 Other specified disorders of muscle (principal)
CPT/HCPCS: 36415; 82550; 85651; 86140